=== PATIENT | female | born 1935 | race Caucasian/White ===

== ENCOUNTER 2019-08-03 17:20 | Inpatient (IN) | payer MEDICARE, OTHER ==
[~2019-08-03] VITALS: Ht 152.4 cm; Wt 60.3 kg
[2019-08-03] MEDS ORDERED: DOCU-141 PO (17:36)
[2019-08-03] MEDS ORDERED: MAGN400T26 PO (17:36)
[2019-08-03] MEDS ORDERED: ACET-868 PO (17:36)
[2019-08-03] MEDS ORDERED: AMLO5TAB4 PO (17:36)
[2019-08-03] MEDS ORDERED: SENN-168 PO (17:36)
[2019-08-03] MEDS ORDERED: HYDR-4354 PO (17:36)
[2019-08-03] MEDS ORDERED: INSU100V27 SQ (17:36)
[2019-08-03] MEDS ORDERED: HYDR-4076 PO (17:36)
[2019-08-03] MEDS ORDERED: ASPI-1152 PO (17:36)
[2019-08-03] MEDS ORDERED: ATOR10TA PO (17:36)
[2019-08-03] MEDS ORDERED: FURO-144 PO (17:36)
[2019-08-03] MEDS ORDERED: DILT-4 PO (17:36)
--- NOTE | 2019-08-03 17:36 | NUR ---
Patient came in via wheelchair, sent by PMD for surgery scheduled tomorrow. On room air, breathing evenly and unlabored, connected to the monitor and pulse ox. kept comfortable, will continue to monitor accordingly.
[2019-08-03] MEDS ORDERED: BLOO-668 IN (17:37)
[2019-08-03 17:40] LABS: BASOPHILS # (AUTO) 0.2 /CMM (0.0-0.2); BASOPHILS % (AUTO) 2.5 % (0.0-2.0); EOSINOPHILS % (AUTO) 5.3 % (0.0-6.0); HEMATOCRIT 36 % (33-45); LYMPHOCYTES # (AUTO) 2.4 /CMM (0.8-4.8); LYMPHOCYTES % (AUTO) 34.8 % (20.0-44.0); MEAN CORPUSCULAR HGB CONC 33 g/dl (31.0-36.0); MEAN CORPUSCULAR VOLUME 82 fL (82-100); MONOCYTES # (AUTO) 0.5 /CMM (0.1-1.30); NEUTROPHILS # (AUTO) 3.4 /CMM (1.8-8.9); NEUTROPHILS % (AUTO) 49.4 % (43.0-81.0); PLATELET COUNT (AUTO) 115 /CMM (150-450); RED BLOOD CELL COUNT(AUTO) 4.45 MIL/uL (4.0-5.2); WHITE BLOOD COUNT (AUTO) 6.9 K/uL (4.3-11.0)
[2019-08-03 17:47] LABS: CALCIUM, SERUM 8.9 mg/dL (8.5-10.1); CARBON DIOXIDE 28 mmol/L (21-32); CHLORIDE 102 mmol/L (98-107); GLUCOSE 132 mg/dL (74-106); POTASSIUM 3.8 mmol/L (3.5-5.1); SODIUM SERUM 141 mmol/L (136-145); UREA NITROGEN, BLOOD 22 mg/dL (7-18)
--- NOTE | 2019-08-03 18:11 | NUR ---
PAGED [facility].
--- NOTE | 2019-08-03 18:11 | NUR ---
CALLED NURSING SUP FOR M/S BED.
--- NOTE | 2019-08-03 19:28 | NUR ---
NURSING SUP GAVE [phone].
[2019-08-03] MEDS ORDERED: MAG HYDROX/AL HYDROX/SIMETH 30 ML UDC PO PRN (19:30)
[2019-08-03] MEDS ORDERED: DEXTROSE 50%-WATER 50 ML DISP.SYRIN IV PRN (19:30)
[2019-08-03] MEDS ORDERED: HYDROCODONE/APAP 5/325MG 1 EACH TABLET PO PRN (19:30)
[2019-08-03] MEDS ORDERED: ONDANSETRON HCL/PF 4 MG/2 ML VIAL IVP PRN (19:30)
[2019-08-03] MEDS ORDERED: MAGNESIUM HYDROXIDE 30 ML UDC PO PRN (19:30)
[2019-08-03] MEDS ORDERED: ACETAMINOPHEN 325 MG TABLET PO PRN (19:30)
[2019-08-03] MEDS ORDERED: Z GUARD REMEDY 2 OZ OINT TP PRN (19:30)
--- NOTE | 2019-08-03 19:47 | NUR ---
REPORT GIVEN TO JESSICA @ [facility]
--- NOTE | 2019-08-03 19:55 | NUR ---
RN OPENING NOTES RECEIVED PATIENT FROM ER VIA [facility]ILVER. A/OX4. NO SIGNS OF DISTRESS OR DISCOMFORT. BREATHING EVEN AND UNLABORED. IV ACCESS IN RAC, PATENT AND INTACT, NO SIGNS OF REDNESS OR INFILTRATION. ORIENTED PATIENT TO UNIT AND ROOM. BED IN LOW LOCKED POSITION WITH SIDE RAILS X2. CALL LIGHT WITHIN REACH. WILL CONTINUE TO MONITOR.
--- NOTE | 2019-08-03 19:57 | NUR ---
PT WAS TRANSFERRED TO THE [facility] FLOOR IN STABLE CONDITION. PT'S W/C WAS SENT TO THE ROOM W/ THE PT.
[2019-08-03 20:00] VITALS: BP 142/65
[2019-08-03] MEDS: BLOOD SUGAR DIAGNOSTIC 1 EACH STRIP IN SCH (21:14)
[2019-08-03] MEDS: ATORVASTATIN 10 MG TABLET PO SCH (21:14)
[2019-08-03] MEDS: SENNOSIDES 8.6 MG TABLET PO SCH (21:18)
[2019-08-04] MEDS: BLOOD SUGAR DIAGNOSTIC 1 EACH STRIP IN SCH ×4 (06:36→22:29)
[2019-08-04 08:00] VITALS: BP 155/88
[2019-08-04 08:12] LABS: BASOPHILS # (AUTO) 0.1 /CMM (0.0-0.2); BASOPHILS % (AUTO) 1.5 % (0.0-2.0); EOSINOPHILS % (AUTO) 9.3 % (0.0-6.0); HEMATOCRIT 34 % (33-45); HEMOGLOBIN 10.9 g/dL (11.5-14.8); LYMPHOCYTES # (AUTO) 1.8 /CMM (0.8-4.8); LYMPHOCYTES % (AUTO) 32.5 % (20.0-44.0); MEAN CORPUSCULAR HGB CONC 33 g/dl (31.0-36.0); MEAN CORPUSCULAR VOLUME 82 fL (82-100); MONOCYTES # (AUTO) 0.4 /CMM (0.1-1.30); MONOCYTES % (AUTO) 7.7 % (2.0-12.0); NEUTROPHILS # (AUTO) 2.8 /CMM (1.8-8.9); PLATELET COUNT (AUTO) 86 /CMM (150-450); RED BLOOD CELL COUNT(AUTO) 4.08 MIL/uL (4.0-5.2); WHITE BLOOD COUNT (AUTO) 5.6 K/uL (4.3-11.0)
[2019-08-04 08:23] LABS: CALCIUM, SERUM 8.4 mg/dL (8.5-10.1); CARBON DIOXIDE 28 mmol/L (21-32); CHLORIDE 105 mmol/L (98-107); CREATININE 1.5 mg/dL (0.6-1.3); GLUCOSE 121 mg/dL (74-106); MAGNESIUM 2.1 mg/dL (1.8-2.4); PHOSPHORUS 3.7 mg/dL (2.5-4.9); POTASSIUM 3.5 mmol/L (3.5-5.1); SODIUM SERUM 142 mmol/L (136-145); UREA NITROGEN, BLOOD 23 mg/dL (7-18)
[2019-08-04 08:28] LABS: CHOLESTEROL 146 mg/dL (<200); HDL CHOLESTEROL 84 mg/dL (40-60); LDL 53 mg/dL (0-99); THYROID STIMULATING HORMONE 3.978 uIU/mL (0.358-3.74); TRIGLYCERIDES 88 mg/dL (30-150)
--- NOTE | 2019-08-04 08:52 | NUR ---
MS RN NOTES-- PT SEEN AND EXAMINED BY DR. ESPARZA AND DEBBY.
[2019-08-04] MEDS: DOCUSATE SODIUM 100 MG CAPSULE PO SCH ×2 (08:57→16:43)
[2019-08-04] MEDS: FUROSEMIDE 40 MG TABLET PO SCH ×2 (08:57→16:43)
[2019-08-04] MEDS: DILTIAZEM HCL CD 240 MG PO SCH (08:57)
[2019-08-04] MEDS: AMLODIPINE BESYLATE 5 MG TABLET PO SCH (08:57)
[2019-08-04] MEDS: MAGNESIUM OXIDE 400 MG TABLET PO SCH ×2 (08:57→16:43)
[2019-08-04] MEDS: ASPIRIN EC 81 MG TABLET.DR PO SCH (08:58)
[2019-08-04] MEDS: hydrALAZINE HCL 25 MG TABLET PO SCH ×3 (08:58→16:43)
[2019-08-04 10:01] LABS: EOSINOPHILS % (MANUAL) 6 % (0-4); LYMPHOCYTES % (MANUAL) 31 % (16-48); MONOCYTES % (MANUAL) 10 % (0-11.0); NEUTROPHILS % (MANUAL) 53 (42-76)
--- NOTE | 2019-08-04 11:39 | NUR ---
MS RN NOTES-- PERSON FROM [employer] [facility] CHECK STATED "EVERYTHING LOOKS GREAT AND I NOTIFIED DR. ESPARZA."
--- NOTE | 2019-08-04 12:55 | NUR ---
MS RN NOTES-- PT SEEN AND EXAMINED BY JESSICA PEGUERO OF DR. PEREZ. SURGERY AT 0800 TOMORROW. NPO POST MIDNIGHT.
[2019-08-04 16:00] VITALS: BP 118/76
[2019-08-04] MEDS: INSULIN REGULAR, HUMAN 100 UNIT/ML 3 ML VIAL SQ PRN (16:44)
--- NOTE | 2019-08-04 18:31 | NUR ---
MS RN END OF SHIFT SUMMARY PT REMAINS A/O X4, AFEBRILE. RESPIRATIONS ARE EVEN AND UNLABORED, NOT IN ANY ACUTE DISTRESS NOTED. PT DENIES ANY PAIN DURING SHIFT, NO C/O SOB, N/V. +FLATUS, NO BM. ABLE TO VOID ADEQUATE UOP. SOFT CAST TO RIGHT ANKLE D/T FX FOR SCHEDULED SURGERY IN AM. CONSENTS SIGNED. PT MADE AWARE SHE WILL BE NPO POST MIDNIGHT. ALL NEEDS MET AND RENDERED. SAFETY MEASURES ARE IN PLACE. CALL LIGHT IS LEFT WITHIN REACH. WILL MONITOR AND CONTINUE POC.
--- NOTE | 2019-08-04 19:30 | NUR ---
MS RN OPENING NOTE RECEIVED PATIENT IN BED. A/OX4. TOLERATING ROOM AIR. RESPIRATIONS ARE EVEN AND UNLABORED. NO S/S SOB NOTED. DENIES PAIN AT THIS TIME. IN NO APPARENT DISTRESS. IV ACCESS IN RAC#18 PATENT AND SALINE LOCKED. REMINDED PATIENT SHE IS NPO AFTER MIDNIGHT, PATIENT CONFIRMED SHE IS AWARE. INFORMED WILL BE BACK AT MIDNIGHT TO REMOVE ALL FOOD AND DRINK FROM BEDSIDE. BED IS LOW AND LOCKED, HOB ELEVATED IN SEMI FOWLERS, SIDE RIALS UP X2, CALL LIGHT WITHIN REACH. FAMILY AT BEDSIDE. WILL CONTINUE TO MONITOR.
[2019-08-04 20:00] VITALS: BP 119/61
[2019-08-04 20:08] VITALS: BP 119/61
[2019-08-04] MEDS: SENNOSIDES 8.6 MG TABLET PO SCH (22:28)
[2019-08-04] MEDS: ATORVASTATIN 10 MG TABLET PO SCH (22:28)
--- NOTE | 2019-08-04 23:19 | NUR ---
MS MORRIS NOTE REMOVED ALL FOOD AND DRINK FROM BED SIDE. INFORMED PATIENT TO MAINTAIN NPO STATUS UNTIL PROCEDURE. PATIENT VERBALIZES UNDERSTANDING. WILL CONTINUE TO MONITOR. Addendum: 08/04/19 at 2320 by MISSAEL CASTILLO RN PLACED NPO SIGN ON DOOR
[2019-08-05] MEDS: BLOOD SUGAR DIAGNOSTIC 1 EACH STRIP IN SCH ×4 (06:23→20:53)
[2019-08-05 06:29] LABS: BASOPHILS # (AUTO) 0.1 /CMM (0.0-0.2); EOSINOPHILS % (AUTO) 10.6 % (0.0-6.0); HEMATOCRIT 31 % (33-45); HEMOGLOBIN 10.4 g/dL (11.5-14.8); LYMPHOCYTES % (AUTO) 35.8 % (20.0-44.0); MEAN CORPUSCULAR HGB CONC 33 g/dl (31.0-36.0); MEAN CORPUSCULAR VOLUME 81 fL (82-100); MONOCYTES # (AUTO) 0.4 /CMM (0.1-1.30); MONOCYTES % (AUTO) 6.9 % (2.0-12.0); NEUTROPHILS # (AUTO) 2.6 /CMM (1.8-8.9); NEUTROPHILS % (AUTO) 45.7 % (43.0-81.0); PLATELET COUNT (AUTO) 94 /CMM (150-450); RED BLOOD CELL COUNT(AUTO) 3.84 MIL/uL (4.0-5.2); WHITE BLOOD COUNT (AUTO) 5.7 K/uL (4.3-11.0)
--- NOTE | 2019-08-05 06:30 | NUR ---
MS RN CLOSING NOTE PATIENT IN BED. A/OX4. TOLERATING ROOM AIR. RESPIRATIONS ARE EVEN AND UNLABORED. NO SOB NOTED. NO C.O PAIN THROUGHOUT SHIFT. NO DISTRESS NOTED. IV ACCESS MAINTAINED IN RAC#18 PATENT AND SALINE LOCKED. PATIENT MAINTAINED NPO STATUS. BED REMAINS LOW AND LOCKED, HOB ELEVATED IN SEMI FOWLERS, SIDE RIALS UP X2, CALL LIGHT WITHIN REACH. WILL ENDORSE TO NEXT SHIFT.
[2019-08-05 06:32] LABS: CALCIUM, SERUM 8.5 mg/dL (8.5-10.1); CARBON DIOXIDE 29 mmol/L (21-32); CHLORIDE 106 mmol/L (98-107); CREATININE 1.5 mg/dL (0.6-1.3); GLUCOSE 102 mg/dL (74-106); POTASSIUM 3.6 mmol/L (3.5-5.1); SODIUM SERUM 144 mmol/L (136-145); UREA NITROGEN, BLOOD 22 mg/dL (7-18)
--- NOTE | 2019-08-05 07:15 | NUR ---
MS RN NOTES-- PT P/U BY OR VIA GURNEY IN STABLE CONDITION READY FOR SURGERY. CONSENTS SIGNED AND CHECKLIST DONE.
[2019-08-05] MEDS ORDERED: ANESTHESIA TRAY IN PYXIS 1 EA TRAY MC ONE (07:53)
[2019-08-05] MEDS ORDERED: BUPIVACAINE 0.5 % PF 150 MG/30 ML VIAL ONE (07:53)
[2019-08-05] MEDS ORDERED: BACITRACIN 50000 UNITS/VIAL ONE (07:53)
[2019-08-05 08:32] LABS: EOSINOPHILS % (MANUAL) 4 % (0-4); LYMPHOCYTES % (MANUAL) 44 % (16-48); MONOCYTES % (MANUAL) 7 % (0-11.0); NEUTROPHILS % (MANUAL) 45 (42-76)
[2019-08-05] MEDS: hydrALAZINE HCL 25 MG TABLET PO SCH ×3 (09:00→16:14)
[2019-08-05] MEDS: FUROSEMIDE 40 MG TABLET PO SCH ×2 (09:00→16:11)
[2019-08-05] MEDS ORDERED: TRANEXAMIC ACID 1,000 MG in SODIUM CHLORIDE IRRIG SOLUTION 85 ML IR ONE ×2 (09:00→09:30)
[2019-08-05] MEDS: DOCUSATE SODIUM 100 MG CAPSULE PO SCH ×2 (09:00→16:11)
[2019-08-05] MEDS: DILTIAZEM HCL CD 240 MG PO SCH (09:00)
[2019-08-05] MEDS: ASPIRIN EC 81 MG TABLET.DR PO SCH (09:00)
[2019-08-05] MEDS: AMLODIPINE BESYLATE 5 MG TABLET PO SCH (09:00)
[2019-08-05] MEDS ORDERED: TRANEXAMIC ACID 1,000 MG in IV NS 0.9% 50 ML IV ONE (09:00)
[2019-08-05] MEDS: MAGNESIUM OXIDE 400 MG TABLET PO SCH ×2 (09:00→16:11)
--- NOTE | 2019-08-05 09:30 | NUR ---
WOUND CARE: PT NOT SEEN YET FOR SKIN ASSESSMENT DUE TO PT OFF UNIT IN O.R. WILL SEE PT PT CONDITION PERMITS.
--- NOTE | 2019-08-05 10:16 | NUR ---
MS RN NOTES-- ALL MORNING MEDICATIONS HELD D/T PT BEING IN OR.
[2019-08-05] MEDS ORDERED: HYDROMORPHONE 1 MG/1 ML DISP.SYRIN ONE (10:18)
--- NOTE | 2019-08-05 11:00 | NUR ---
MS RN NOTES-- PT CAME BACK FROM RECOVERY IN MEDICALLY STABLE CONDITION VIA DEONDR[place]ARTHIK. PT REMAINS A/O X4, HOWEVER SLEEPY. RESPIRATIONS ARE EVEN AND UNLABORED, NOT IN ANY ACUTE DISTRESS NOTED. DENIES ANY PAIN AT THIS TIME. RIGHT ANKLE COVERED WITH AVELINO WRAP AND ELEVATED ABOVE 2 PILLOWS. VITAL SIGNS WNL. BEDSIDE REPORT RECEIVED BY OR NURSE.
[2019-08-05 11:13] LABS: HEMOGLOBIN 10.2 g/dL (11.5-14.8)
--- NOTE | 2019-08-05 11:32 | NUR ---
MS RN NOTES-- TRANEXAMIC GIVEN BY OR.
[2019-08-05] MEDS: INSULIN REGULAR, HUMAN 100 UNIT/ML 3 ML VIAL SQ PRN ×3 (11:51→20:52)
[2019-08-05 12:00] VITALS: BP 134/69
--- NOTE | 2019-08-05 12:17 | NUR ---
WOUND CARE CONSULT: PT PRESENTS WITH RASH TO ABDOMINAL/GROIN FOLDS, BUTTOCKS AND PERINEUM WELL SCARRING/DISCOLORATION TO SACRAL AREA WITH INCONTINENCE ASSOCIATED SKIN DAMAGE TO RT BUTTOCK, PRESENT ON ADMISSION. RECOMMENDATIONS MADE FOR SKIN PROTECTION AND CARE. DISCUSSED WITH NURSING STAFF. WILL SEE PRN. SLATER IN AGREEMENT WITH PLAN OF CARE. CURRENT SERENA SCORE IS 16. Addendum: 08/05/19 at 1218 by ANAHY PALM WNDNU Amended: Links added.
[2019-08-05] MEDS: IV LR 1000 ML 1,000 ML IV PRN (13:51)
[2019-08-05] MEDS: CEFAZOLIN 2 GM in IV D5W 100 ML IV SCH (16:02)
[2019-08-05] MEDS: CLOTRIMAZOLE 1% 15 GM TUBE TP SCH (16:11)
--- NOTE | 2019-08-05 18:26 | NUR ---
MS RN END OF SHIFT SUMMARY PT REMAINS A/O X4, AFEBRILE. RESPIRATIONS ARE EVEN AND UNLABORED, NOT IN ANY ACUTE DISTRESS NOTED. PT DENIES ANY PAIN DURING SHIFT, NO C/O SOB, N/V. +FLATUS, NO BM. ABLE TO VOID ADEQUATE UOP. RLE COVERED WITH AVELINO WRAP AND ELEVATED ABOVE 2 PILLOWS. PT ABLE TO WIGGLE TOES. ALL NEEDS MET AND RENDERED. SAFETY MEASURES ARE IN PLACE. CALL LIGHT IS LEFT WITHIN REACH. WILL MONITOR AND CONTINUE POC.
--- NOTE | 2019-08-05 19:26 | NUR ---
MS2/RN RECEIVE PATIENT ON BED AWAKE, ALERT, ORIENTED, COMFORTABLE, NO C/O PAIN, NO DISTRESS NOTED. PATIENT IS S/P ORIF OF RIGHT ANKLE THIS MORNING, RT. LEG WITH AVELINO WRAP DRESSING. FALL PRECAUTIONS, CALL LIGHT IN REACH. WILL MONITOR.
[2019-08-05 20:00] VITALS: BP 123/68
[2019-08-05] MEDS: HYDROCODONE/APAP 5/325MG 1 EACH TABLET PO PRN (20:51)
[2019-08-05] MEDS: ATORVASTATIN 10 MG TABLET PO SCH (20:51)
[2019-08-05] MEDS: SENNOSIDES 8.6 MG TABLET PO SCH (21:02)
[2019-08-06] MEDS: CEFAZOLIN 2 GM in IV D5W 100 ML IV SCH (00:04)
[2019-08-06] MEDS: IV LR 1000 ML 1,000 ML IV PRN ×2 (04:19→17:44)
--- NOTE | 2019-08-06 06:11 | NUR ---
MS2/RN PATIENT IS STILL SLEEPING AT THIS TIME, APPEAR COMFORTABLE, NO SIGNS OF DISTRESS NOTED, SLEPT GOOD THE WHOLE SHIFT, ALL NEEDS ATTENDED AT THIS TIME, WILL CONTINUE TO MONITOR.
[2019-08-06 06:44] LABS: BASOPHILS % (AUTO) 0.4 % (0.0-2.0); HEMATOCRIT 26 % (33-45); HEMOGLOBIN 8.6 g/dL (11.5-14.8); LYMPHOCYTES # (AUTO) 1.5 /CMM (0.8-4.8); LYMPHOCYTES % (AUTO) 16.2 % (20.0-44.0); MEAN CORPUSCULAR HGB CONC 33 g/dl (31.0-36.0); MEAN CORPUSCULAR VOLUME 82 fL (82-100); MONOCYTES # (AUTO) 0.5 /CMM (0.1-1.30); MONOCYTES % (AUTO) 5.4 % (2.0-12.0); NEUTROPHILS # (AUTO) 7.1 /CMM (1.8-8.9); PLATELET COUNT (AUTO) 84 /CMM (150-450); RED BLOOD CELL COUNT(AUTO) 3.14 MIL/uL (4.0-5.2); WHITE BLOOD COUNT (AUTO) 9.2 K/uL (4.3-11.0)
--- NOTE | 2019-08-06 07:30 | NUR ---
RN MS NOTES PT IN BED, AWAKE, ALERT AND ORIENTED, WITH COMPLAINT OF SLIGHT PAIN AT THE RIGHT ANKLE, DOES NOT WANT ANY PAIN MED FOR NOW, RESPIRATIONS NORMAL, IV FLUIDS INFUSING WELL, CALL LIGHT WITHIN REACH, NEEDS ATTENDED.
[2019-08-06 07:31] LABS: CREATINE KINASE, TOTAL 23 U/L (26-192)
[2019-08-06] MEDS: BLOOD SUGAR DIAGNOSTIC 1 EACH STRIP IN SCH ×4 (07:51→21:39)
[2019-08-06 08:00] VITALS: BP 126/70
[2019-08-06 08:00] LABS: APPEARANCE,URINE CLEAR (CLEAR); BILIRUBIN,URINE NEGATIVE (NEGATIVE); BLOOD, URINE NEGATIVE Ery/uL (NEGATIVE); COLOR,URINE YELLOW (YELLOW); KETONES,URINE NEGATIVE (NEGATIVE); LEUKOCYTE ESTERASE ,URINE NEGATIVE (NEGATIVE); NITRITE, URINE NEGATIVE (NEGATIVE); PROTEIN,URINE TRACE mg/dl (NEGATIVE); UGLUCOSE NEGATIVE (NEGATIVE); UROBILINOGEN,URINE 0.2 EU/dL (0.2)
[2019-08-06 08:20] LABS: ALANINE AMINOTRANSFERASE 6 U/L (12-78); ALBUMIN 3.1 g/dL (3.4-5.0); ALKALINE PHOSPHATASE 50 U/L (46-116); ASPARTATE AMINOTRANSFERASE 17 U/L (15-37); BILIRUBIN,TOTAL 0.4 mg/dL (0.2-1.0); CALCIUM, SERUM 8.4 mg/dL (8.5-10.1); CARBON DIOXIDE 25 mmol/L (21-32); CHLORIDE 104 mmol/L (98-107); CREATININE 1.5 mg/dL (0.6-1.3); GLUCOSE 121 mg/dL (74-106); PHOSPHORUS 3.8 mg/dL (2.5-4.9); SODIUM SERUM 140 mmol/L (136-145); UREA NITROGEN, BLOOD 20 mg/dL (7-18)
[2019-08-06 08:43] LABS: EOSINOPHIL,URINE None Seen
[2019-08-06 08:53] LABS: CREATININE, URINE 68.8 MG/DL (30.0-125.0); URINE TOTAL PROTEIN 42.2 mg/dL (0-11.9)
[2019-08-06] MEDS: ASPIRIN EC 81 MG TABLET.DR PO SCH (08:59)
[2019-08-06] MEDS: MAGNESIUM OXIDE 400 MG TABLET PO SCH ×2 (08:59→16:33)
[2019-08-06] MEDS: DILTIAZEM HCL CD 240 MG PO SCH (08:59)
[2019-08-06] MEDS: hydrALAZINE HCL 25 MG TABLET PO SCH ×3 (09:00→17:00)
[2019-08-06] MEDS: FUROSEMIDE 40 MG TABLET PO SCH ×2 (09:00→17:00)
[2019-08-06] MEDS: AMLODIPINE BESYLATE 5 MG TABLET PO SCH (09:00)
[2019-08-06] MEDS: DOCUSATE SODIUM 100 MG CAPSULE PO SCH ×2 (09:00→17:00)
[2019-08-06] MEDS: ENOXAPARIN SODIUM 40 MG/0.4 ML DISP.SYRIN SQ SCH (09:05)
[2019-08-06] MEDS: CLOTRIMAZOLE 1% 15 GM TUBE TP SCH ×2 (09:06→16:35)
--- NOTE | 2019-08-06 10:05 | NUR ---
RN MS NOTES PT SEEN AND EXAMINED BY DR. GUARDADO, PLAN OF CARE DISCUSSED WITH PT, VERBALIZED UNDERSTANDING.
[2019-08-06] MEDS: INSULIN REGULAR, HUMAN 100 UNIT/ML 3 ML VIAL SQ PRN (12:03)
[2019-08-06 16:00] VITALS: BP 115/53
--- NOTE | 2019-08-06 18:15 | NUR ---
RN MS NOTES PT IN BED, RESTING, NO COMPLAINT OF PAIN AT THIS TIME, RESPIRATIONS NORMAL, CALL LIGHT WITHIN REACH, TOLERATES CURRENT DIET, IV FLUIDS INFUSING WELL, SEEN BY JOHN PEGUERO, PLAN OF CARE DISCUSSED WITH PT, VERBALIZED UNDERSTANDING, PM MEDS GIVEN, ALL NEEDS ATTENDED.
--- NOTE | 2019-08-06 19:05 | NUR ---
MS RN NOTES Received patient A/O, awake on bed. On, RA, no SOB/respiratory distress noted. Patient denies any discomfort at this time. Kept on bed clean, dry and comfortable. On fall and aspiration precautions. Will continue to monitor accordingly.
[2019-08-06 19:24] LABS: HEMOGLOBIN 7.9 g/dL (11.5-14.8)
[2019-08-06 20:00] VITALS: BP 123/47
[2019-08-06] MEDS: ATORVASTATIN 10 MG TABLET PO SCH (22:38)
[2019-08-06] MEDS: SENNOSIDES 8.6 MG TABLET PO SCH (22:38)
[2019-08-06] MEDS: HYDROCODONE/APAP 5/325MG 1 EACH TABLET PO PRN (22:39)
[2019-08-07] MEDS: BLOOD SUGAR DIAGNOSTIC 1 EACH STRIP IN SCH ×2 (06:52→12:12)
--- NOTE | 2019-08-07 06:59 | NUR ---
MS RN CLOSING NOTES Patient asleep on bed, easily awaken. Denies any discomfort at this time. No new complaint made. All nursing needs attended. Kept on bed clean, dry and comfortable. On fall and aspiration precautions. Endorsed.
--- NOTE | 2019-08-07 07:30 | NUR ---
RN MS NOTES PT IN BED, ASLEEP, EASY TO AROUSE, ALERT AND ORIENTED, DENIES PAIN AT THIS TIME, BREATHING PATTERN NORMAL, IV FLUIDS INFUSING WELL, CALL LIGHT WITHIN REACH, NEEDS ATTENDED.
[2019-08-07 08:00] VITALS: BP 133/63
[2019-08-07] MEDS: DILTIAZEM HCL CD 240 MG PO SCH (08:40)
[2019-08-07] MEDS: hydrALAZINE HCL 25 MG TABLET PO SCH ×2 (08:41→12:12)
[2019-08-07] MEDS: ASPIRIN EC 81 MG TABLET.DR PO SCH (08:41)
[2019-08-07] MEDS: MAGNESIUM OXIDE 400 MG TABLET PO SCH (08:41)
[2019-08-07] MEDS: AMLODIPINE BESYLATE 5 MG TABLET PO SCH (08:42)
[2019-08-07] MEDS: CLOTRIMAZOLE 1% 15 GM TUBE TP SCH (08:44)
[2019-08-07] MEDS: FUROSEMIDE 40 MG TABLET PO SCH (08:47)
[2019-08-07] MEDS: DOCUSATE SODIUM 100 MG CAPSULE PO SCH (08:47)
[2019-08-07] MEDS: ENOXAPARIN SODIUM 40 MG/0.4 ML DISP.SYRIN SQ SCH (08:47)
[2019-08-07 09:39] LABS: BASOPHILS # (AUTO) 0.1 /CMM (0.0-0.2); BASOPHILS % (AUTO) 1.2 % (0.0-2.0); EOSINOPHILS % (AUTO) 3.5 % (0.0-6.0); HEMATOCRIT 25 % (33-45); HEMOGLOBIN 8.3 g/dL (11.5-14.8); LYMPHOCYTES # (AUTO) 1.7 /CMM (0.8-4.8); LYMPHOCYTES % (AUTO) 25.1 % (20.0-44.0); MEAN CORPUSCULAR HGB CONC 33 g/dl (31.0-36.0); MEAN CORPUSCULAR VOLUME 83 fL (82-100); MONOCYTES # (AUTO) 0.5 /CMM (0.1-1.30); NEUTROPHILS # (AUTO) 4.3 /CMM (1.8-8.9); NEUTROPHILS % (AUTO) 62.2 % (43.0-81.0); PLATELET COUNT (AUTO) 74 /CMM (150-450); RED BLOOD CELL COUNT(AUTO) 3.03 MIL/uL (4.0-5.2); WHITE BLOOD COUNT (AUTO) 6.9 K/uL (4.3-11.0)
--- NOTE | 2019-08-07 09:54 | NUR ---
RN MS NOTES PT SEEN BY DR. GUARDADO, REPEAT CBC DONE, AWAITING RESULT, PT INFORMED OF PLAN OF CARE, VERBALIZED UNDERSTANDING, PT ALSO SEEN BY PHYSICAL THERAPIST, TOLERATED EXERCISES WELL.
[2019-08-07] MEDS ORDERED: ENOX40DI SQ (10:44)
[2019-08-07 11:31] LABS: CALCIUM, SERUM 8.2 mg/dL (8.5-10.1); CARBON DIOXIDE 29 mmol/L (21-32); CHLORIDE 106 mmol/L (98-107); CREATININE 1.4 mg/dL (0.6-1.3); GLUCOSE 146 mg/dL (74-106); SODIUM SERUM 142 mmol/L (136-145); UREA NITROGEN, BLOOD 21 mg/dL (7-18)
[2019-08-07 11:32] LABS: NEUTROPHILS % (MANUAL) 63 (42-76)
[2019-08-07 11:33] LABS: EOSINOPHILS % (MANUAL) 2 % (0-4); LYMPHOCYTES % (MANUAL) 24 % (16-48); MONOCYTES % (MANUAL) 11 % (0-11.0)
--- NOTE | 2019-08-07 12:59 | NUR ---
RN MS NOTES PT IN BED, AWAKE, ALERT AND ORIENTED, NO COMPLAINT OF PAIN AT THIS TIME, SEEN AND EXAMINED BY DR. GUARDADO, REPEAT LABS DONE, H/H IMPROVED, DISCHARGE ORDER GIVEN BY MD, DISCHARGE AND MEDICATION INSTRUCTIONS PROVIDED TO PT, VERBALIZED UNDERSTANDING, SCHEDULED [employer]OR TIME 4PM,
--- NOTE | 2019-08-07 16:44 | NUR ---
RN MS NOTES PT AWAKE, ALERT AND ORIENTED, DENIES PAIN, NOT IN DISTRESS, DISCHARGE ORDER GIVEN BY DR. GUARDADO, DISCHARGE AND MEDICATION INSTRUCTIONS PROVIDED TO PT, VERBALIZED UNDERSTANDING, SKIN CHECK AND PHOTOS DONE, BELONGINGS ACCOUNTED FOR, REPORT GIVEN TO NATALIYA MORRIS OF [facility], PICKED UP BY 2 AMBULANCE PERSONNEL, LEFT VIA GUERNEY IN STABLE CONDITION, SON JEANINE INFORMED AND AGREED OF PT'S TRANSFER.
[2019-08-07 16:56] VITALS: BP 136/62
[2019-08-08 07:08] LABS: PTH, INTACT 34 pg/mL (15-65)
[2019-08-09 05:07] LABS: *SPE A/G RATIO 1.2 (0.7-1.7); *SPE ALBUMIN 3.1 g/dL (2.9-4.4); *SPE ALPHA-1-GLOBULIN 0.2 g/dL (0.0-0.4); *SPE ALPHA-2-GLOBULIN 0.5 g/dL (0.4-1.0); *SPE BETA GLOBULIN 0.8 g/dL (0.7-1.3); *SPE GLOBULIN, TOTAL 2.5 g/dL (2.2-3.9); *SPE M-SPIKE Not Observed g/dL (Not Observed)
== END 2019-08-07 16:44 | DRG 492 ==
LOC: ER 17:20 → MEDSG2 19:41
PROVIDERS: ADMIT Nurse Practitioner Acute Care; ATTEND Nurse Practitioner Acute Care
PROC: 0QSJ04Z Reposition Right Fibula with Internal Fixation Device, Open Approach (ICD-10-PCS; principal; 2019-08-05)
PROC: 0QSG04Z Reposition Right Tibia with Internal Fixation Device, Open Approach (ICD-10-PCS; 2019-08-05)
DX: S82.841A Displaced bimalleolar fracture of right lower leg, initial encounter for closed fracture (principal); N17.0 Acute kidney failure with tubular necrosis; N18.4 Chronic kidney disease, stage 4 (severe); I13.0 Hypertensive heart and chronic kidney disease with heart failure and stage 1 through stage 4 chronic kidney disease, or unspecified chronic kidney disease; E87.0 Hyperosmolality and hypernatremia; I50.32 Chronic diastolic (congestive) heart failure; W18.30XA Fall on same level, unspecified, initial encounter; Y92.89 Other specified places as the place of occurrence of the external cause; I25.10 Atherosclerotic heart disease of native coronary artery without angina pectoris; D63.8 Anemia in other chronic diseases classified elsewhere; E11.22 Type 2 diabetes mellitus with diabetic chronic kidney disease; E86.9 Volume depletion, unspecified; E78.5 Hyperlipidemia, unspecified; D69.6 Thrombocytopenia, unspecified; E11.40 Type 2 diabetes mellitus with diabetic neuropathy, unspecified; M81.0 Age-related osteoporosis without current pathological fracture; Z79.4 Long term (current) use of insulin; Z79.82 Long term (current) use of aspirin; Z79.899 Other long term (current) drug therapy; I70.0 Atherosclerosis of aorta; I35.0 Nonrheumatic aortic (valve) stenosis; Z95.2 Presence of prosthetic heart valve; Z95.0 Presence of cardiac pacemaker; Z90.710 Acquired absence of both cervix and uterus; Z83.3 Family history of diabetes mellitus; Z82.49 Family history of ischemic heart disease and other diseases of the circulatory system
CPT/HCPCS: 36415; 71045-TC; 73600-TC; 80048-TC; 80053-TC; 80061-TC; 81000-TC; 82550-TC; 82570-TC; 82962-TC; 83735-TC; 83970; 84100-TC; 84155; 84155-TC; 84165; 84300-TC; 84443-TC; 85025-TC; 85027-TC; 85730-TC; 86850-TC; 87081-TC; 93307-TC; 97112-TC; 97116-TC; 97530-TC; A4216; G0378; J0690; J1100; J1170; J1650; J1815; J3490; J7060; J7120